=== PATIENT | male | born 1950 | race Caucasian/White ===

== ENCOUNTER 2024-03-13 13:35 | Emergency (ER) | payer MEDICARE, MEDICAID ==
[~2024-03-13] VITALS: Ht 188 cm; Wt 115.7 kg
[2024-03-13] MEDS ORDERED: oxyCODONE/APAP (5/325 MG) 1 UDTAB TABLET ONE (15:07)
[2024-03-13] MEDS: oxyCODONE/APAP (5/325 MG) 1 UDTAB TABLET PO ONE (15:11)
[2024-03-13] MEDS ORDERED: IBUP-1953 PO (15:58)
[2024-03-13] MEDS ORDERED: OXYC-128 PO (15:58)
[2024-03-13 16:28] VITALS: BP 137/67; TEMP 98.9; O2SAT 100
== END 2024-03-13 16:28 | disposition home or self-care (01) ==
LOC: ER 13:37
DX: S42.212A Unspecified displaced fracture of surgical neck of left humerus, initial encounter for closed fracture (principal); S42.252A Displaced fracture of greater tuberosity of left humerus, initial encounter for closed fracture; W18.30XA Fall on same level, unspecified, initial encounter; Y93.89 Activity, other specified; Y92.009 Unspecified place in unspecified non-institutional (private) residence as the place of occurrence of the external cause; Y99.8 Other external cause status
CPT/HCPCS: 70450-TC; 73030-TC; 73060-TC